=== PATIENT | male | born 1985 | race Caucasian/White ===

== ENCOUNTER 2022-01-11 12:25 | Emergency (ER) | payer OTHER ==
[~2022-01-11] VITALS: Ht 165.1 cm; Wt 71.7 kg
--- NOTE | 2022-01-11 12:32 | NUR ---
PT AMBULATED TO BED 09.
[2022-01-11 12:36] VITALS: BP 143/84
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
[2022-01-11] MEDS ORDERED: IBUPROFEN 600 MG TAB PO ONE (12:50)
--- NOTE | 2022-01-11 12:56 | NUR ---
pt given apple juice and sauce to prevent GI upset
[2022-01-11] MEDS ORDERED: IBUP-2213 PO (13:08)
[2022-01-11] MEDS ORDERED: METH-1681 PO (13:08)
[2022-01-11 13:20] VITALS: BP 143/84
--- NOTE | 2022-01-11 13:20 | NUR ---
Patient discharged with v/s stable. Written and verbal after care instructions ABOUT CERVICAL STRAIN AND SPRAIN given and explained. Patient alert, oriented and verbalized understanding of instructions. Ambulatory with steady gait. All questions addressed prior to discharge. ID band removed. Patient advised to follow up with PMD. Rx of IBUPROFEN AND ROBAXIN given. Patient educated on indication of medication including possible reaction and side effects. Opportunity to ask questions provided and answered.
== END 2022-01-11 13:20 | disposition home or self-care (01) ==
LOC: MED 12:25
DX: S16.1XXA Strain of muscle, fascia and tendon at neck level, initial encounter (principal); M25.511 Pain in right shoulder; Z79.899 Other long term (current) drug therapy; V89.2XXA Person injured in unspecified motor-vehicle accident, traffic, initial encounter; Y93.89 Activity, other specified; Y92.89 Other specified places as the place of occurrence of the external cause; Y99.8 Other external cause status
CPT/HCPCS: 99283